=== PATIENT | male | born 1965 ===

== ENCOUNTER 2017-07-21 16:10 | Outpatient (CLI) | payer OTHER | END 2017-07-21 16:11 | disposition short-term general hospital (02) | LOC: EMS 16:10 | PROVIDERS: ATTEND Surgery | DX: T24.331A Burn of third degree of right lower leg, initial encounter (principal); T24.332A Burn of third degree of left lower leg, initial encounter; V93.59XA Explosion on board unspecified watercraft, initial encounter; Y92.838 Other recreation area as the place of occurrence of the external cause | CPT/HCPCS: A0425; A0427 ==